=== PATIENT | female | born 2000 | race Caucasian/White ===

== ENCOUNTER 2021-12-25 16:34 | Inpatient (IN) | payer OTHER ==
[~2021-12-25] VITALS: Ht 165.1 cm; Wt 81.2 kg
[2021-12-25 17:43] LABS: HEMOGLOBIN 13.3 gm/dl (12.3-15.3); RED BLOOD COUNT 4.35 M/UL (4.00-5.10)
[2021-12-25 18:15] LABS: BUN/CREATININE RATIO 22 (0-10)
--- NOTE | 2021-12-25 23:12 | NUR ---
PER DR ORTIZ PUT IN ORDER FOR LEVOPHED
[2021-12-26 03:01] LABS: BUN/CREATININE RATIO 16 (0-10)
[2021-12-26 03:07] LABS: HEMOGLOBIN 12.1 gm/dl (12.3-15.3); RED BLOOD COUNT 3.92 M/UL (4.00-5.10)
[2021-12-26 03:33] LABS: WHITE BLOOD COUNT 23.9 K/UL (4.5-11.0)
[2021-12-26] MEDS ORDERED: LEVOTHYROXINE100 MCG PO (10:51)
[2021-12-26] MEDS ORDERED: IBU800 MG PO (10:52)
[2021-12-27 02:05] LABS: HEMOGLOBIN 11.6 gm/dl (12.3-15.3); RED BLOOD COUNT 3.76 M/UL (4.00-5.10)
[2021-12-27 02:27] LABS: BUN/CREATININE RATIO 12 (0-10)
[2021-12-27] MEDS ORDERED: LEVOFLOXACIN750 MG PO (12:07)
== END 2021-12-27 17:57 | disposition home or self-care (01) | DRG 871 ==
LOC: ER1 16:34 → CDU 21:35 → PROG CARE 21:36 → CDU 21:36 → PROG CARE 23:22
PROVIDERS: Internal Medicine; Physician Assistant Medical; ADMIT Internal Medicine
PROC: 3E033XZ Introduction of Vasopressor into Peripheral Vein, Percutaneous Approach (ICD-10-PCS; principal; 2021-12-25)
PROC: 3E03329 Introduction of Other Anti-infective into Peripheral Vein, Percutaneous Approach (ICD-10-PCS; 2021-12-25)
DX: A41.9 Sepsis, unspecified organism (principal); R65.21 Severe sepsis with septic shock; N10 Acute pyelonephritis; E03.9 Hypothyroidism, unspecified; Z87.440 Personal history of urinary (tract) infections; Z88.0 Allergy status to penicillin; Z88.8 Allergy status to other drugs, medicaments and biological substances; Z90.89 Acquired absence of other organs; Z98.890 Other specified postprocedural states; Z79.899 Other long term (current) drug therapy
CPT/HCPCS: 36415; 80048; 80053; 81001; 83605; 84703; 85025; 86140; 87040; 87077; 87086; 87186; 93005; 96374; 96375; 99285; J0696; J1650; J2185; J2270; J2405; J7030; Q9967